=== PATIENT | male | born 1950 ===

== ENCOUNTER 2016-09-17 16:32 | Emergency (ER) | payer BC, MEDICARE ==
--- NOTE | 2016-09-17 18:49 | UC ---
Throat Pain/Nasal Natanael HPI - HPI Summary HPI Summary: complaint of cough and nasal congestion for over a month cough is worse in the morning than at night and first thing in the morning pressure in his forehead often dull intermittent headaches denies shortness of breath, wheezing denies fever and chills, muscle aches, N/V/D has tried mucinex, nyquil dayquil wiothout relief - History of Current Complaint Stated Complaint: COUGH Time Seen by Provider: 09/17/16 18:37 Hx Obtained From: Patient - Allergies/Home Medications Allergies/Adverse Reactions: Allergies Allergy/AdvReac Type Severity Reaction Status Date / Time No Known Allergies Allergy Verified 09/21/12 07:19 PMH/Surg Hx/FS Hx/Imm Hx Previously Healthy: Yes - Surgical History Surgical History: Yes Surgery Procedure, Year, and Place: SUM[facility] 2011 [facility]. [facility] - Family History Known Family History: Negative: Cardiac Disease, Hypertension, Diabetes - Social History Occupation: Employed Part-time Lives: With Family Substance Use Type: None Review of Systems Constitutional: Negative Skin: Negative Eyes: Negative ENT: Nasal Discharge Respiratory: Cough Cardiovascular: Negative Gastrointestinal: Negative Genitourinary: Negative Motor: Negative Neurovascular: Negative Musculoskeletal: Negative Neurological: Negative Psychological: Negative All Other Systems Reviewed And Are Negative: Yes Physical Exam Triage Information Reviewed: Yes Appearance: No Pain Distress, Well-Nourished Vital Signs Reviewed: Yes Eyes: Positive: Conjunctiva Clear ENT: Positive: Pharyngeal erythema, Nasal congestion, Nasal drainage, TMs normal , Other: - frontal sinus tenderness. Negative: Tonsillar swelling, Tonsillar exudate Neck: Positive: No Lymphadenopathy Respiratory: Positive: Lungs clear, Normal breath sounds, No respiratory distress, Decreased breath sounds Cardiovascular: Positive: RRR, No Murmur, Pulses Normal Abdomen Description: Positive: Nontender, Soft Bowel Sounds: Positive: Present Musculoskeletal: Positive: No Edema Neurological: Positive: Alert Psychological Exam: Normal Skin Exam: Normal Throat Pain/Nasal Course/Dx - Course Course Of Treatment: exam completed. will treat for sinusitis and possible pneumonia- refuses chest x-ray at this time. discussed black box warning- rest for 2 weeks - Differential Dx/Diagnosis Differential Diagnosis/HQI/PQRI: Sinusitis, URI, Other - bronichitis, pneumonia Provider Diagnoses: sinusitis, bronchitis Discharge - Discharge Plan Condition: Stable Disposition: LAW ENFORCEMENT/COURT Prescriptions: Levofloxacin TAB* [Levaquin TAB*] 750 mg PO DAILY #7 tab Patient Education Materials: Sinusitis (ED), Pneumonia (ED) Referrals: Diaz Scott MD [Primary Care Provider] - Additional Instructions: Start antibiotic as directed Increase fluids and rest Take acetaminophen or ibuprofen for fever or pain Please review your discharge instructions. If your symptoms do not improve please call your primary care provider or return to urgent care
[2016-09-17 19:05] VITALS: BP 137/69
== END 2016-09-17 19:17 | disposition home or self-care (01) ==
LOC: UCCORT 16:32
DX: J32.9 Chronic sinusitis, unspecified (principal); J40 Bronchitis, not specified as acute or chronic
CPT/HCPCS: 99202; G0463